=== PATIENT | male | born 1990 | race Caucasian/White ===

== ENCOUNTER 2023-02-12 20:08 | Emergency (ER) | payer SELFPAY ==
[~2023-02-12] VITALS: Ht 180.3 cm; Wt 104.0 kg
[2023-02-12 20:21] VITALS: BP 133/67
== END 2023-02-12 23:20 ==
LOC: ER 20:15
DX: M54.59 Other low back pain (principal); F17.210 Nicotine dependence, cigarettes, uncomplicated; F12.90 Cannabis use, unspecified, uncomplicated; V89.2XXA Person injured in unspecified motor-vehicle accident, traffic, initial encounter; Y93.89 Activity, other specified; Y92.411 Interstate highway as the place of occurrence of the external cause; Y99.8 Other external cause status

== ENCOUNTER 2024-01-02 08:20 | Emergency (ER) | payer BC ==
[~2024-01-02] VITALS: Ht 180.3 cm; Wt 102.6 kg
[2024-01-02 09:32] VITALS: BP 152/90; PULSE 90; RESP 16; TEMP 98; O2SAT 97
[2024-01-02] MEDS ORDERED: NAP500T PO (10:22)
== END 2024-01-02 10:30 | disposition home or self-care (01) ==
LOC: ER 08:20
DX: M76.62 Achilles tendinitis, left leg (principal); F17.210 Nicotine dependence, cigarettes, uncomplicated; Z79.899 Other long term (current) drug therapy
CPT/HCPCS: 73610